=== PATIENT | female | born 1995 ===

== ENCOUNTER 2024-03-23 23:20 | Inpatient (IN) | payer OTHER ==
[~2024-03-23] VITALS: Ht 154.9 cm; Wt 85.0 kg
[2024-03-23] MEDS ORDERED: LR 1,000 ML IV PRN (23:30)
[2024-03-23 23:35] VITALS: BP 136/79; PULSE 91; TEMP 98.4
--- NOTE | 2024-03-23 23:35 | NUR ---
2335 [id number] 41 WEEKS GEST TO LR5 WITH SROM AT 2245. NO C/O CONTRACTIONS. EFM ON. SVE /-2 LEAKING CL FLUID. POSITIVE AMNIOTRACE. ADM ASSESSMENT DONE. 675 DR GUERRA NOTIFIED AND ORDERS RECEIVED.
[2024-03-23] MEDS ORDERED: ZYRTEC5 MG PO (23:39)
[2024-03-23] MEDS ORDERED: PRENATAL TABLET PO (23:39)
[2024-03-24] VITALS (46 sets, daily range): BP systolic 91–145; BP diastolic 53–99; PULSE 65–121; TEMP 98–100.1
[2024-03-24] MEDS ORDERED: LR & Oxytocin 500 ML IV SCH (00:15)
[2024-03-24] MEDS ORDERED: LR 1,000 ML IV SCH (00:15)
--- NOTE | 2024-03-24 00:30 | NUR ---
[id number] UP TO BR AND AMB IN ROOM. CONTS TO LEAK LARGE AMT CL FLUIDS 0100 EFM ON. IV STARTED IN L FOREARM.
--- NOTE | 2024-03-24 01:20 | NUR ---
0120 PITOCIN STARTED AT 2MU/MIN PER IV POMP.
[2024-03-24 01:32] LABS: HEMOGLOBIN 10.2 g/dl (12.5-16.0); MEAN CELL VOLUME 89 fl (80.0-100.0); MEAN CORPUSCULAR HEMOGLOBIN 29 pg (27-31); MEAN CORPUSCULAR HGB CONC 33 g/dl (33.0-37.0); MEAN PLATELET VOLUME 10.1 fl (7.4-10.4); PLATELET COUNT 250 K/mm3 (130-400); RED BLOOD COUNT 3.49 M/mm3 (4.10-5.30); REDCELL DISTRIBUTION WIDTH-CV 13.9 % (11.5-14.5)
[2024-03-24 01:40] LABS: HEMATOCRIT 31.1 % (37.0-47.0)
--- NOTE | 2024-03-24 02:38 | NUR ---
[id number] UP TO BR AND VOIDED. RETURNED TO BED. STATES CONTRACTIONS ARE FEELING STRONGER AND CONTS TO LEAK CL FLUID
[2024-03-24 02:42] LABS: BAND 3 % (0-10); EOSINOPHIL 2 % (0-4); LYMPHOCYTE 17 % (20.0-51.0); NEUTROPHILS 73 % (42.0-75.2); PLATELET ESTIMATE NORMAL (NORMAL)
--- NOTE | 2024-03-24 04:00 | NUR ---
0400 READY FOR EPIDURAL. DISPOSAL MAN NOTIFIED. 0415 UP TO BR TO VOID. 0420 DISPOSAL MAN HERE.
--- NOTE | 2024-03-24 04:30 | NUR ---
0430 SITTING ON SIDE OF BED FOR EPID PLACEMENT. 0433 EPID DOSED PER LABORATORY SCIENTIST. SEE ANESTHSIA RECORDS FOR MORE INFORMATION.
[2024-03-24] MEDS ORDERED: ROPivacaine PF 0.2% 200 ML IV ONE (04:38)
[2024-03-24] MEDS ORDERED: Ondansetron 4 MG/2 ML VIAL IV PRN (05:00)
[2024-03-24] MEDS ORDERED: Naloxone 0.4 MG/ML VIAL IV PRN ×2 (05:00→11:45)
[2024-03-24] MEDS ORDERED: diphenhydrAMINE 25 MG CAP PO PRN (05:00)
[2024-03-24] MEDS ORDERED: diphenhydrAMINE 50 MG/ML 1 ML VIAL IV PRN (05:00)
[2024-03-24] MEDS ORDERED: ePHEDrine 50 MG/10 ML VIAL IV PRN (05:00)
--- NOTE | 2024-03-24 07:00 | NUR ---
SVE AT THIS TIME PER THIS RN. /-2. PT TOLERATED WELL. PT VITAL SIGNS STABLE. EFM TRACING CAT I.
--- NOTE | 2024-03-24 07:45 | NUR ---
THIS RN AT BEDSIDE. PT STATES FEELING A LITTLE BIT OF RECTAL PRESSURE. SVE AT THIS TIME PER THIS RN WITH A SECOND CHECK BY CHELA HAY. 9-/0. PT TOLERATED WELL. EFM TRACING CAT I. PT VITAL SIGNS STABLE.
--- NOTE | 2024-03-24 11:07 | NUR ---
0915PT COMPLETE AT THIS TIME. 0918ORDER OBTAINED FROM DR LEOS TO START PUSHING WITH THIS PT. 0920CHARGE NURSE AND NURSERY NURSE NOTIFIED THAT THIS RN IS GOING TO START PUSHING WITH PT. 0925ROOM AND PT SET UP FOR DELIVERY. DORAN REMOVED AT THIS TIME. 0927THIS RN STARTED PUSHING WITH PT AT THIS TIME. GOOD MATERNAL EFFORT NOTED. 1000DR DERIC AT BEDSIDE TO CHECK PROGRESS. DR LEOS SVE DURING PT PUSHING. DR LEOS NOTES GOOD MATERNAL EFFORT. 1100DR DERIC AT BEDSIDE FOR IMPENDING DELIVERY. NURSERY NURSE AT BEDSIDE FOR IMPENDING DELIVERY. ROOM AND PT SET UP FOR DELIVERY. 1107SVD OF VIABLE FEMALE INFANT AT THIS TIME PER DR LEOS. NUCHAL CORD X1 NOTED. INFANT PLACED ON MATERNAL ABDOMEN. CARE ASSUMED BY NURSERY. 1111SVD OF PLACENTA PER DR LEOS. FUNDUS FIRMS UP WITH FUNDAL PRESSURE, BOGGY IN BETWEEN FUNDAL MASSAGES. 2ND DEGREE PERINEAL LACERATION NOTED. REPAIR STARTED AT THIS TIME. 1115REPAIR FINISHED AT THIS TIME. FUNDUS FIRM AT U. LOCHIA WNL. 600 MG OF CYTOTEC ADMINISTERED PER DR LEOS. 1117ROOM AND BED PUT BACK TOGETHER. PERICARE PERFORMED. ICE PACK PLACED ON PERINUEM. PT COMFORTABLE IN BED.
[2024-03-24] MEDS ORDERED: Ibuprofen 600 MG TAB PO SCH (11:45)
[2024-03-24] MEDS ORDERED: Measles/Mumps/Rubella Virus Vaccine Live w Diluent 0.5 ML VIAL SQ SCH (11:45)
[2024-03-24] MEDS ORDERED: Phenylephrine/Mineral Oil/Petrolatum 57 GM TUBE RC PRN (11:45)
[2024-03-24] MEDS ORDERED: oxyCODONE 5 MG TAB PO PRN (11:45)
[2024-03-24] MEDS ORDERED: Magnes Hydrox (MOM) 80 MG/ML 30 ML CUP PO PRN (11:45)
[2024-03-24] MEDS ORDERED: Mag/Al Hydrox/Simeth Susp 30 ML CUP PO PRN (11:45)
[2024-03-24] MEDS ORDERED: Loratadine 10 MG TAB PO PRN (11:45)
[2024-03-24] MEDS ORDERED: Acetaminophen 500 MG TAB PO SCH (11:45)
[2024-03-24] MEDS ORDERED: Witch Hazel 50% Pads Bulk TUB TP PRN (11:45)
[2024-03-24] MEDS ORDERED: Sennosides/Docusate 8.6-50 MG TAB PO SCH (17:00)
[2024-03-24] MEDS ORDERED: traZODone 50 MG TAB PO PRN (21:00)
[2024-03-25 04:00] VITALS: BP 103/50; PULSE 59; TEMP 97.6
[2024-03-25 08:01] VITALS: BP 121/73; PULSE 81; TEMP 98.2
[2024-03-25] MEDS ORDERED: IBU600 MG PO (08:02)
--- NOTE | 2024-03-25 10:41 | NUR ---
Initial visit attempt: Physician with patient. [employer] Technical Developer left card offering congratulations and God's blessings for the of their daughter and information regarding the availability of Spiritual Care at our hospital.
--- NOTE | 2024-03-25 14:30 | NUR ---
ALL DC PAPERWORK REVIEWED AND UNDERSTOOD, INCLUDING MEDS AND FOLLOW UP APPOINTMENTS. PT DENIES FURTHER QUESTIONS OR CONCERNS. AMBULATORY FROM UNIT IN STABLE CONDITION WITH ALL BELONGINGS ACCOUNTED FOR.
== END 2024-03-25 14:30 | disposition home or self-care (01) | DRG 807 ==
LOC: LDRO 23:20 → OB 03-24 02:25 → LDR 03-24 02:25 → OB 03-24 15:00
PROVIDERS: Obstetrics & Gynecology; ADMIT Student in an Organized Health Care Education/Training Program
PROC: 10E0XZZ Delivery of Products of Conception, External Approach (ICD-10-PCS; principal; 2024-03-24)
PROC: 0KQM0ZZ Repair Perineum Muscle, Open Approach (ICD-10-PCS; 2024-03-24)
DX: O48.0 Post-term pregnancy (principal); Z37.0 Single live birth; Z3A.41 41 weeks gestation of pregnancy; O75.89 Other specified complications of labor and delivery; O70.1 Second degree perineal laceration during delivery; Z86.16 Personal history of COVID-19; O69.81X0 Labor and delivery complicated by cord around neck, without compression, not applicable or unspecified
CPT/HCPCS: J2590; J2795; J7120